=== PATIENT | male | born 1955 | race Caucasian/White ===

== ENCOUNTER → 2016-10-27 | Outpatient (CLI) | payer OTHER ==
[~2016-10-27] MED LIST: METH4PAK4 PO; OXYC-57 PO
== END | disposition home or self-care (01) ==
LOC: C.LABBC 15:27
PROVIDERS: ATTEND Nurse Practitioner Family
DX: Z11.59 Encounter for screening for other viral diseases (principal)

== ENCOUNTER 2017-12-13 14:25 | Emergency (ER) | payer OTHER ==
[~2017-12-13] VITALS: Ht 185.4 cm; Wt 90.5 kg
[2017-12-13 14:34] VITALS: TEMP 36.8; Ht 185.4 cm; Wt 90.5 kg
[2017-12-13 15:48] LABS: BASO % 0.3 %; BASO ABS # 0.03 K/uL (0-0.2); EOS % 1.4 %; EOS ABS # 0.12 K/uL (0-0.5); HEMATOCRIT 45.3 % (42-52); HEMOGLOBIN 16.7 g/dL (14.0-18.0); IG# 0.03 K/uL (0.00-0.02); LYMPH ABS # 2.93 K/uL (1.2-3.4); MEAN CELL VOLUME 89.3 fL (80-100); MEAN CORPUSCULAR HEMOGLOBIN 32.9 pg (25-34); MEAN CORPUSCULAR HGB CONC 36.9 g/dl (32-36); MEAN PLATELET VOLUME 7.9 fL (7.4-10.4); MONO % 9.6 %; MONO ABS # 0.83 K/uL (0.11-0.59); NEUT % 54.4 %; NEUT ABS # 4.68 K/uL (1.4-6.5); PLATELET COUNT 197 K/uL (130-400); RED CELL DISTRIBUTION WIDTH CV 12.9 % (11.5-14.5); RED CELL DISTRIBUTION WIDTH SD 41.7 fL (36.4-46.3); WHITE BLOOD COUNT 8.62 K/uL (4.8-10.8)
[2017-12-13 15:58] LABS: CALCIUM 8.8 mg/dl (8.5-10.1); CREATININE 1.11 mg/dl (0.60-1.40); POTASSIUM 3.9 mmol/L (3.5-5.1); TOTAL PROTEIN 7.8 gm/dl (6.4-8.2)
[2017-12-13 16:01] VITALS: BP 150/70; PULSE 89; O2SAT 97
[2017-12-13] MEDS ORDERED: SULFAMETHOXAZOLE/TRIMETHOPRIM DS 800/160MG TAB PO STA (16:14)
[2017-12-13] MEDS ORDERED: SULF800T23 PO (16:15)
[2017-12-13] MEDS ORDERED: MULT-1093 PO (16:27)
--- NOTE | 2017-12-13 19:09 | EMERGENCY ROOM VISIT NOTE ---
History Report prepared by Tami: Gabriele Daniel Under the Supervision of: Rain GastelumO. First contact with patient: 14:50 Chief Complaint: URINARY SYMPTOMS Stated Complaint: BLOOD IN URINE Nursing Triage Summary: Pt reports last night he noticed blood in urine. Right testicle pain. History of Present Illness The patient is a 62 year old male who presents to the Emergency Room with complaints of intermittent blood in his urine that started last night. He states that there has only been a little bit of blood in his urine when there is blood, and he did not have any blood this morning until around 4 hours ago. The patient states that his right testicle has been sore since last night, and notes that the pain is less than a 1 out of 10 in severity. He says that he has had a bit of burning with urination since last night. He states that he has been urinating a bit more frequently ever since his hernia. The patient notes that his testicle is not swollen or red, and he denies any trauma. The patient also denies any nausea, vomiting, diarrhea, back pain, or flank pain. He is not on any blood thinners. Source of History: patient Onset: Last night Position: other (global) Symptom Intensity: only a little bit of blood Quality: other (blood in urine) Timing: intermittent Associated Symptoms: + urinary symptoms (burning), No nausea, No vomiting, No back pain (or flank pain), No diarrhea Note: Right testicle soreness. Review of Systems See HPI for pertinent positives & negatives. A total of 10 systems reviewed and were otherwise negative. Past Medical & Surgical Medical Problems: (1) No chronic diseases present Family History Cancer Social History Smoking Status: Current Every Day Smoker Alcohol Use: occasionally Drug Use: none Occupation Status: employed Current/Historical Medications Scheduled Multiple Vitamins W/ Minerals (Centrum Silver 50+Men), 1 TAB PO DAILY Sulfamethoxazole-Trimethoprim (Bactrim Ds 800MG/160MG), 1 TAB PO BID Allergies Coded Allergies: No Known Allergies (Unverified , 12/13/17) Physical Exam Vital Signs Date Time Temp Pulse Resp B/P (MAP) Pulse Ox O2 Delivery O2 Flow Rate FiO2 12/13/17 16:01 89 18 150/70 97 Room Air 12/13/17 14:34 36.8 99 18 132/85 98 Room Air Physical Exam GENERAL: Sitting up on bed, alert, well appearing, well nourished, no distress, non-toxic EYE EXAM: normal conjunctiva. OROPHARYNX: no exudate, no erythema, lips, buccal mucosa, and tongue normal and mucous membranes are moist NECK: supple, no nuchal rigidity, no adenopathy, non-tender LUNGS: Clear to auscultation. Normal chest wall mechanics HEART: no murmurs, S1 normal and S2 normal ABDOMEN: abdomen soft, non-tender, normo-active bowel sounds, no masses, no rebound or guarding : Normal external circumcised genitalia. Large right inguinal hernia that is reducible, nontender. No testicular pain. BACK: Back is symmetrical on inspection and there is no deformity, no midline tenderness, no CVA tenderness. SKIN: no rashes and no bruising UPPER EXTREMITIES: upper extremities are grossly normal. LOWER EXTREMITIES: No pitting edema. NEURO EXAM: Normal sensorium, cranial nerves II-XII grossly intact, normal speech, no gross weakness of arms, no gross weakness of legs. Medical Decision & Procedures Laboratory Results 12/13/17 15:17 Red Blood Count 5.07, Mean Corpuscular Volume 89.3, Mean Corpuscular Hemoglobin 32.9, Mean Corpuscular Hemoglobin Concent 36.9, Mean Platelet Volume 7.9, Neutrophils (%) (Auto) 54.4, Lymphocytes (%) (Auto) 34.0, Monocytes (%) (Auto) 9.6, Eosinophils (%) (Auto) 1.4, Basophils (%) (Auto) 0.3, Neutrophils # (Auto) 4.68, Lymphocytes # (Auto) 2.93, Monocytes # (Auto) 0.83, Eosinophils # (Auto) 0.12, Basophils # (Auto) 0.03 12/13/17 15:17 Test 12/13/17 15:17 White Blood Count 8.62 K/uL (4.8-10.8) Red Blood Count 5.07 M/uL (4.7-6.1) Hemoglobin 16.7 g/dL (14.0-18.0) Hematocrit 45.3 % (42-52) Mean Corpuscular Volume 89.3 fL (80-100) Mean Corpuscular Hemoglobin 32.9 pg (25-34) Mean Corpuscular Hemoglobin Concent 36.9 g/dl (32-36) Platelet Count 197 K/uL (130-400) Mean Platelet Volume 7.9 fL (7.4-10.4) Neutrophils (%) (Auto) 54.4 % Lymphocytes (%) (Auto) 34.0 % Monocytes (%) (Auto) 9.6 % Eosinophils (%) (Auto) 1.4 % Basophils (%) (Auto) 0.3 % Neutrophils # (Auto) 4.68 K/uL (1.4-6.5) Lymphocytes # (Auto) 2.93 K/uL (1.2-3.4) Monocytes # (Auto) 0.83 K/uL (0.11-0.59) Eosinophils # (Auto) 0.12 K/uL (0-0.5) Basophils # (Auto) 0.03 K/uL (0-0.2) RDW Standard Deviation 41.7 fL (36.4-46.3) RDW Coefficient of Variation 12.9 % (11.5-14.5) Immature Granulocyte % (Auto) 0.3 % Immature Granulocyte # (Auto) 0.03 K/uL (0.00-0.02) Urine Color DK YELLOW Urine Appearance CLOUDY (CLEAR) Urine pH 5.0 (4.5-7.5) Urine Specific Emery 1.025 (1.000-1.030) Urine Protein 1+ (NEG) Urine Glucose (UA) NEG (NEG) Urine Ketones NEG (NEG) Urine Occult Blood 3+ (NEG) Urine Nitrite NEG (NEG) Urine Bilirubin NEG (NEG) Urine Urobilinogen NEG (NEG) Urine Leukocyte Esterase LARGE (NEG) Urine WBC (Auto) >30 /hpf (0-5) Urine RBC (Auto) >30 /hpf (0-4) Urine Hyaline Casts (Auto) 1-5 /lpf (0-5) Urine Epithelial Cells (Auto) 0-5 /lpf (0-5) Urine Bacteria (Auto) NEG (NEG) Anion Gap 6.0 mmol/L (3-11) Est Creatinine Clear Calc Drug Dose 79.0 ml/min Estimated GFR () 82.6 Estimated GFR (Non- 71.3 BUN/Creatinine Ratio 12.9 (10-20) Calcium Level 8.8 mg/dl (8.5-10.1) Total Bilirubin 0.7 mg/dl (0.2-1) Direct Bilirubin 0.2 mg/dl (0-0.2) Aspartate Amino Transf (AST/SGOT) 19 U/L (15-37) Alanine Aminotransferase (ALT/SGPT) 37 U/L (12-78) Alkaline Phosphatase 81 U/L (45-117) Total Protein 7.8 gm/dl (6.4-8.2) Albumin 4.0 gm/dl (3.4-5.0) Lipase 170 U/L (73-393) Laboratory results per my review. Medications Administered Medications (Trade) Dose Ordered Sig/Merline Route Start Time Stop Time Status Last Admin Dose Admin Trimethoprim/ Sulfamethoxazole (Septra Ds 800/ 160MG Tab) 1 tab NOW STAT PO 12/13/17 16:14 12/13/17 16:15 DC 12/13/17 16:27 1 TAB ED Course ED COURSE: Vital signs were reviewed and showed normal vitals. The patients medical record was reviewed The above diagnostic studies were performed and reviewed. ED treatments and interventions as stated above. 1454: The patient was evaluated in room C6. A complete history and physical examination was performed. 1614: Septra Ds 800/160MG Tab 1 tab PO. 1617: Upon reevaluation, the patient is resting.I discussed my findings with the patient and he understands and agrees with the treatment plan. Based on the patients age, coexisting illnesses, exam and lab findings the decision to treat as an outpatient was made. The patient remained stable while under my care. The patient appeared well at the time of discharge. Medical Decision Differential diagnoses includes but is not limited to gastritis, peptic ulcer disease, GERD, gallbladder disease, pancreatitis, small bowel obstruction, acute coronary syndrome, pericarditis, ischemic bowel, irritable bowel disease, irritable bowel syndrome, appendicitis, diverticulitis, malignancy, hernia, urinary tract infection, torsion, perforation, trauma, infectious. Patient is a 62-year-old male who presents the ER for hematuria which has been intermittent since last night along with dysuria, urgency and frequency. Does have an old right inguinal hernia. CBC along with BMP, LFTs, bilirubin lipase is unremarkable. UA shows a clear UTI with leuks, and white cells. Patient was given Bactrim. He was updated at bedside. He was discharged follow-up with his PCP in 3-5 days. Discussed with Pt concerning signs and symptoms to watch out for. Pt was instructed to follow up with their PCP and discussed with the patient their option to return to the ED at anytime for persistent or worsening symptoms. The appropriate anticipatory guidance and out-patient management, including indications for return to the emergency department, were explained at length to the patient and understood. Medication Reconcilliation Current Medication List: was personally reviewed by me Blood Pressure Screening Patient's blood pressure: Normal blood pressure Impression Primary Impression: Urinary tract infection Scribe Attestation The scribe's documentation has been prepared under my direction and personally reviewed by me in its entirety. I confirm that the note above accurately reflects all work, treatment, procedures, and medical decision making performed by me. Departure Information Dispostion Home / Self-Care Prescriptions Sulfamethoxazole-Trimethoprim (Bactrim Ds 800MG/160MG) 1 Tab Tab 1 TAB PO BID, #20 TAB Prov: Lencho Rodriguez DO 12/13/17 Referrals Britney Tinoco DO (PCP) Patient Instructions ED UTI Cystitis Male, Hematuria Urologic Causes , My [facility] Additional Instructions Please follow up with your primary care doctor with in the next 24 hours. Any worsening of your symptoms, please return to the ED immediately. This includes any fevers greater than 100.4, worsening pain, chest pain, shortness breath, persistent nausea, vomiting, unable to eat or drink, or any other concerning signs or symptoms from your standpoint. Please take your antibiotics as prescribed. Problem Qualifiers Primary Impression: Urinary tract infection Urinary tract infection type: acute cystitis Hematuria presence: with hematuria Qualified Codes: N30.01 - Acute cystitis with hematuria
== END 2017-12-13 16:20 | disposition home or self-care (01) ==
LOC: C.EDB 14:25 → C.EDC 16:20
DX: N39.0 Urinary tract infection, site not specified (principal); F17.210 Nicotine dependence, cigarettes, uncomplicated; Z80.9 Family history of malignant neoplasm, unspecified; K40.90 Unilateral inguinal hernia, without obstruction or gangrene, not specified as recurrent